=== PATIENT | male | born 2000 | race Caucasian/White ===

== ENCOUNTER 2022-03-17 14:21 | Emergency (ER) | payer OTHER, SELFPAY ==
--- NOTE | 2022-03-17 14:27 | XR_ITS ---
WS: [id number] XR shoulder RT min 2V* [id number] REASON FOR EXAM: injury FINDINGS: Deformity of the distal right clavicle which may represent an old healed fracture. Significant superior displacement of the clavicle in relation to the acromial process. The coracoclavicular distance may possibly be widened. The glenohumeral joint is intact with normal articulation. No fracture of the humerus or glenoid. The scapula is intact. XR/XR shoulder RT min 2V* [id number] IMPRESSION: Grade 2 and possibly grade 3 AC separation. Due to the presumed old healed frac ture of the clavicle this may be an old deformity of the AC joint. Correlate cl inically.
[2022-03-17 15:19] VITALS: BP 139/83; PULSE 82; RESP 16; TEMP 36.8; O2SAT 99; BMI 22.9
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
[2022-03-17] MEDS: HYDROcodone-acetaminophen 5-325 mg Tablet 1 TAB PO (15:52)
[2022-03-17 15:56] VITALS: PULSE 73; RESP 16; O2SAT 99
--- NOTE | 2022-03-20 09:22 | DCPLANNER ---
Addendum entered by Tyesha Shetty 03/23/22 14:09: transport company manager received the following message from the ortho clinic regarding follow up appointment: Pt is being seen up in [place] Original Note: transport company manager had message to schedule a follow up appointment for patient with ortho. transport company manager sent patients information to the front office staff at ortho. Patients information will be printed and reviewed. Clinic will call patient with appointment information.
== END 2022-03-17 15:57 | disposition home or self-care (01) ==
PROVIDERS: Emergency Provider Emergency Medicine; PCP Family Medicine
DX: S43.101A Unspecified dislocation of right acromioclavicular joint, initial encounter (principal); V86.56XA Driver of dirt bike or motor/cross bike injured in nontraffic accident, initial encounter
CPT/HCPCS: 73030; 99283

== ENCOUNTER 2022-04-14 06:00 | Outpatient (RCR) | payer OTHER, SELFPAY | END 2022-05-05 23:59 | disposition home or self-care (01) | LOC: SPT 06:00 | PROVIDERS: PCP Family Medicine; Visit Provider Neuromusculoskeletal Medicine, Sports Medicine | DX: S43.101D Unspecified dislocation of right acromioclavicular joint, subsequent encounter (principal); X58.XXXD Exposure to other specified factors, subsequent encounter; Z47.89 Encounter for other orthopedic aftercare | CPT/HCPCS: 97110; 97161 ==

== ENCOUNTER 2022-05-06 06:00 | Outpatient (RCR) | payer OTHER, SELFPAY | END 2022-06-05 23:59 | disposition home or self-care (01) | LOC: SPT 06:00 | PROVIDERS: PCP Family Medicine; Visit Provider Neuromusculoskeletal Medicine, Sports Medicine | DX: Z47.89 Encounter for other orthopedic aftercare (principal) | CPT/HCPCS: 97110 ==

== ENCOUNTER 2022-06-06 06:00 | Outpatient (RCR) | payer OTHER, SELFPAY | END 2022-07-05 23:59 | disposition home or self-care (01) | LOC: SPT 06:00 | PROVIDERS: PCP Family Medicine; Visit Provider Neuromusculoskeletal Medicine, Sports Medicine | DX: S43.101D Unspecified dislocation of right acromioclavicular joint, subsequent encounter (principal); X58.XXXD Exposure to other specified factors, subsequent encounter | CPT/HCPCS: 97110 ==

== ENCOUNTER 2022-07-06 06:00 | Outpatient (RCR) | payer OTHER, SELFPAY | END 2022-08-05 23:59 | disposition home or self-care (01) | LOC: SPT 06:00 | PROVIDERS: PCP Family Medicine; Visit Provider Neuromusculoskeletal Medicine, Sports Medicine | DX: Z47.89 Encounter for other orthopedic aftercare (principal) | CPT/HCPCS: 97110 ==

== ENCOUNTER 2022-08-06 06:00 | Outpatient (RCR) | payer OTHER, SELFPAY | END 2022-09-05 23:59 | disposition home or self-care (01) | LOC: SPT 06:00 | PROVIDERS: PCP Family Medicine; Visit Provider Neuromusculoskeletal Medicine, Sports Medicine | DX: S43.101D Unspecified dislocation of right acromioclavicular joint, subsequent encounter (principal); X58.XXXD Exposure to other specified factors, subsequent encounter; Z47.89 Encounter for other orthopedic aftercare | CPT/HCPCS: 97110 ==